=== PATIENT | female | born 1970 | race African-American/Black ===

== ENCOUNTER 2020-12-20 12:55 | Outpatient (CLI) | payer BC, SELFPAY ==
[2020-12-20 13:41] LABS: Hematocrit 37.2 % (37.0-47.0); Hemoglobin 12.7 g/dL (12.0-15.0)
== END 2020-12-20 12:56 | disposition home or self-care (01) ==
LOC: ANHSURGERY 12:59
PROVIDERS: PCP Internal Medicine; Visit Provider Obstetrics & Gynecology Gynecology
DX: D64.9 Anemia, unspecified (principal); D25.9 Leiomyoma of uterus, unspecified; Z01.818 Encounter for other preprocedural examination
CPT/HCPCS: 36415; 85014; 85018; 86850; 86900; 86901

== ENCOUNTER 2020-12-24 10:10 | Inpatient (IN) | payer BC, SELFPAY ==
[2020-12-19 15:28] VITALS: BMI 41.6
[2020-12-24] VITALS (9 sets, daily range): BP systolic 105–146; BP diastolic 58–84; PULSE 79–105; RESP 16–21; TEMP 36.3–37.1; O2SAT 94–100
--- NOTE | 2020-12-24 07:22 | WPDANESEPPF ---
Anes - Initial Pre Proc Eval Procedure: Operation Date: 12/24/20 08:30 Proposed Procedures p Total Abdominal Hysterectomy - Hoda Loya MD Date/Time: 12/24/20 07:22 Surgeon: Hoda Loya MD Pre Op Diagnosis: enlarged uterus, anemia, fibroids Patient Data Age: 50 Gender: F Height: 1.63 m Weight: 110 kg Allergies Allergy/AdvReac Type Severity Reaction Status Date / Time No Known Allergies Allergy Unverified 12/24/20 07:37 Home Medications Medication Instructions Recorded Confirmed Type solifenacin [Vesicare] 5 mg PO DAILY 05/17/19 12/24/20 History valacyclovir [Valtrex] 500 mg PO DAILY 05/17/19 12/24/20 History ascorbic acid (vitamin C) 1 g PO DAILY 12/19/20 12/24/20 History cholecalciferol (vitamin D3) 125 mcg PO DAILY 12/19/20 12/24/20 History [Vitamin D3] ferrous sulfate 200 mg PO DAILY 12/19/20 12/24/20 History Patient hx anesthesia problems: none Family hx anesthesia problems: none PMFSH Past Medical History Medical History (Updated 12/24/20 @ 07:34 by Hoad Loya MD) DVT (deep venous thrombosis) x2 HSV infection Morbid obesity with BMI of 40.0-44.9, adult Surgical History Surgical History (Updated 12/24/20 @ 07:35 by Hoda Loya MD) History of hysteroscopy S/P tubal ligation Status post breast reduction Family History Family History (Updated 12/24/20 @ 07:32 by Hoda Loya MD) Mother Uterine cancer Social History Social History Smoking status: Never smoker Alcohol intake: current Drinks per week: 3 Living arrangements: alone Gender identity (if verbalized by the patient): Female Anes - Eval Final PreProcedure Day of Procedure 12/24/20 07:22 Patient weight: morbidly obese Heart: regular rate and rhythm Lungs: clear to auscultation and normal air movement Airway: Mallampati scale class III Neurological: alert and oriented Last oral intake: >/= 8 hours ASA classification: III Emergent: no Anesthetic plan: proceed Anesthesia type and monitoring: general ETT and standard monitoring Informed Consent: The patient's anesthetic plan and its attendant risks and benefits were discussed with the patient/family/POA. Questions were solicited and answers provided to the satisfaction of the patient/family/POA.
--- NOTE | 2020-12-24 07:26 | WPDHPUPDATE1 ---
History and Physical Update Update Date/Time: 12/24/20 07:26 History and Physical has been reviewed, including an updated exam of the patient. There are NO changes in the patient's condition. Risks, benefits, and alternatives have been discussed and questions answered. Patient agrees to proceed with procedure.
--- NOTE | 2020-12-24 07:26 | PM.IMHP ---
H&P: HPI History of Present Illness Date/Time: 12/24/20 07:26 Chief Complaint: fibroid uterus Narrative: the patient is a 50-year-old 1 para 0 aborta 1 admitted for total abdominal hysterectomy bilateral salpingectomy secondary to enlarged fibroid uterus. The patient has had a known fibroid uterus for many years and patient states that her pelvic pressure has increased to the point she wishes to proceed with hysterectomy . The patient's cycles have been normal and remain regular. The risks of surgery including infection, bleeding, injury to internal organs ( especially bowel, bladder, ureters, and ovaries ), deep vein thrombosis, and anesthesia were reviewed. Given the patient's prior history of DVT she will be given Lovenox prior to the surgery as well as postop in the hospital and be discharged with Eliquis for 6 weeks. In addition she will have pneumatic boots during and postoperatively. Patient voices understanding and agrees to proceed. Review of Systems Review of Systems: All systems reviewed & are unremarkable except as noted in HPI and below (HPI) [facility] Past Medical History Medical History (Updated 12/24/20 @ 07:34 by Hoda Loya MD) DVT (deep venous thrombosis) x2 HSV infection Morbid obesity with BMI of 40.0-44.9, adult Surgical History Surgical History (Updated 12/24/20 @ 07:35 by Hoda Loya MD) History of hysteroscopy S/P tubal ligation Status post breast reduction Family History Family History (Updated 12/24/20 @ 07:32 by Hoda Loya MD) Mother Uterine cancer Social History Social History Smoking status: Never smoker Alcohol intake: current Drinks per week: 3 Living arrangements: alone Gender identity (if verbalized by the patient): Female Meds Home Medications and Allergies Home Medications Medication Instructions Recorded Confirmed Type solifenacin [Vesicare] 5 mg PO DAILY 05/17/19 12/19/20 History valacyclovir [Valtrex] 500 mg PO DAILY 05/17/19 12/19/20 History ascorbic acid (vitamin C) 1 g PO DAILY 12/19/20 12/19/20 History cholecalciferol (vitamin D3) 125 mcg PO DAILY 12/19/20 12/19/20 History [Vitamin D3] ferrous sulfate 200 mg PO DAILY 12/19/20 12/19/20 History Allergies Allergy/AdvReac Type Severity Reaction Status Date / Time No Known Allergies Allergy Unverified 12/19/20 15:16 Exam Const: General: healthy appearing and alert Orientation/consciousness: patient oriented x3 Resp: Effort & Inspection: normal respiratory effort Auscultation: clear to auscultation bilaterally Cardio: Rate: regular rate Rhythm: regular rhythm GI: GI Palp: Yes Soft to palpation, No Tenderness to palpation present (GI) and Yes Palpable mass present (fundus at U) : External Female Exam: normal external appearance Speculum Exam - Vagina: normal appearance of the vagina and normal vaginal discharge Speculum Exam - Cervix: Other cervical findings present (cervix pulled very anterior under bone) Bimanual exam- vagina & uterus: enlarged (At Umbilicus) Bimanual Exam- Adnexa, other: No adnexal tenderness Neuro: General: patient oriented x3 Assessment and Plan Assessment and plan (1) Fibroids: Code(s): D21.9 - Benign neoplasm of connective and other soft tissue, unspecified Status: Acute Assessment and Plan: Plan to proceed with FAY-BS
[2020-12-24] MEDS: ACETAMINOPHEN 500 MG TABLET 1000 MG PO (07:39)
[2020-12-24] MEDS: LACTATED RINGERS 1,000 ML 30 ML IV CONT ×2 (08:00→10:16)
[2020-12-24] MEDS: ENOXAPARIN 40 MG/0.4 ML SYRINGE SUB-Q (08:25)
[2020-12-24] MEDS: ceFAZolin 2 GM/D5W 50 ML 2 GM/50 ML BAG IVPB (08:27)
--- NOTE | 2020-12-24 10:08 | W.PM.PROC2 ---
Procedure Note - Detailed Date of Procedure 12/24/20 Pre-op Diagnosis enlarged uterus, anemia, fibroids Post-op Diagnosis same Procedure Performed Total abdominal hysterectomy Surgeon Hoda Loya MD Anesthesia general Findings tubes are surgically absent; ovaries appeared normal; uterus is enlarged with multiple large fibroids to the umbilicus and very wide Description of Procedure the patient was taken to the operating room and placed under anesthesia in the dorsal supine position. She is prepped and draped in the usual sterile fashion. A vertical skin incision is made in the midline from 2cm above the symphysis pubis to the umbilicus. The periumbilical scar and keloid is excised. The incision was carried down to the fascia which was nicked in the midline and extended superiorly and inferiorly with Damon scissors. [place] was used to grasp the fascia which was then dissected off laterally the peritoneum was identified tented and entered with Metzenbaum scissors. The incision is extended with Bovie cautery under direct visualization and palpation. The bowel was packed away using moist laparotomy sponges. The [place] is placed. The uterus is grasped on the cornu with large peons. The round ligaments were doubly ligated with 0 Vicryl transected and the anterior leaf of the broad ligament incised meeting in the midline and the bladder was dissected off using a sponge stick. The uterine vessels are skeletonized, clamped, transected, and suture ligated with 0 Vicryl. The cardinal and uterosacral ligaments were serially clamped, transected, and suture ligated with 0 Vicryl. The uterosacral ligaments were tagged for future use. The vaginal cuff was entered on the left side during the last pedicle. The Allis clamps are used to grasp the vaginal cuff anteriorly and posteriorly. The specimen was amputated using Joyce scissors. The vaginal cuff was closed using 0 Vicryl in a running locked stitch tying each angle to the ipsilateral uterosacral ligaments. The pelvis is irrigated and the right ovary is noted to have bleeding from the suture line. The pedicle was regrasped with a Z clamp was suture ligated and tied with 0 Vicryl resulting in hemostasis. The left ovary is also noted to have bleeding from the left ovarian vein. This is grasped with a clamped suture ligated with 0 Vicryl and good hemostasis is noted the pelvis is irrigated and all pedicles and the vaginal cuff appeared to be hemostatic. All instruments are removed. All sponges are removed. The fascia was closed using 0 PDS in a running fashion. The subcutaneous tissues are irrigated made hemostatic using Bovie cautery. The skin is closed using geoffrey. Sterile bandage was applied. Sponge, needle, and instrument counts are correct per the OR staff. Estimated Blood Loss 100 Drains Yes (koehler) Packing No Pathology yes ( Uterus) Complications No immediate complications Condition stable Disposition PACU
--- NOTE | 2020-12-24 10:17 | PM.DS ---
DS: Admitting Diagnosis Admitting Diagnosis Admitting Diagnosis: symptomatic fibroid uterus DS: Discharge Diagnosis Discharge Diagnosis (1) Fibroids: Code(s): D21.9 - Benign neoplasm of connective and other soft tissue, unspecified Status: Acute (2) S/P FAY (total abdominal hysterectomy): Code(s): Z90.710 - Acquired absence of both cervix and uterus Status: Acute DS: Summary Hospital Course Hospital Course: At the time of discharge, the patient is voiding, ambulating, and tolerating a regular diet. Status at Discharge Functional status at discharge: independent ambulation Overall status at discharge: patient is progressing back to baseline Time Spent with Patient Time attestation: Total time spent providing and/or coordinating discharge services: Time spent: Less than 30 minutes DS: Data Data Completed and Pending Pending studies at discharge: Pending at discharge 12/24/20 09:43 Surgical [PTH] Routine Discharge Plan Discharge Attending physician on discharge: Hoda Loya Discharging Clinician: Isael Leon Anticipated Discharge Date/Time: 12/26/20 07:44 Patient Disposition: Home, Self-Care Activity: may shower, may drive after 2 weeks and pelvic rest Diet: regular Wound Care Instructions: incision open to air Patient Instructions: Hysterectomy (DC), Pain Management After Surgery (DC) Stand Alone Forms: General Discharge Instructions Follow-up/Referrals: Hoda Loya MD [Physician] - Keep Reg. Scheduled Appt. (follow up in 10 days bring suture remover kit, benzoine, and steristrips to visit) Discharge Medications: New hydrocodone-acetaminophen 5-325 mg tablet 1 tablet PO Q4H PRN (Reason: pain) Qty: 30 RF: 0 Eliquis 2.5 mg tablet 2.5 mg PO BID Qty: 60 RF: 1 Continued valacyclovir [Valtrex] 500 mg Tablet 500 mg PO DAILY RF: 0 solifenacin [Vesicare] 5 mg Tablet 5 mg PO DAILY RF: 0 ascorbic acid (vitamin C) 1,000 mg Tablet 1 g PO DAILY RF: 0 ferrous sulfate 200 mg (40 mg iron) Tablet 200 mg PO DAILY RF: 0 cholecalciferol (vitamin D3) [Vitamin D3] 125 mcg (5,000 unit) Tablet 125 mcg PO DAILY RF: 0 Date of admission: 12/24/20 11:27 Primary Care Provider: Carrie,Jennifer Lundberg Admitting Provider: Hoda Loya Attending physician on admission: Hoda Loya Condition: Stable Health Concerns: Send home with staple remover, benzoine, and steri-strips and to bring to office
--- NOTE | 2020-12-24 10:45 | SUR.OPER ---
pt presented to or w/piercing to perineal area/removed upon arrival. pt denied preop any jewelry. dr fierro aware
--- NOTE | 2020-12-24 10:50 | SUR.PHASEI ---
Simple mask removed at 1050.
[2020-12-24] MEDS: fentaNYL CITRATE INJ (*CRX) 100 MCG/2 ML VIAL 25 MCG IV PUSH (11:15)
[2020-12-24] MEDS: DEXTROSE 5%/LACTATED RINGERS 1,000 ML 125 ML IV CONT ×2 (12:13→20:11)
[2020-12-24] MEDS: HYDROcodone/acetaminophen (*CRX) 10-325 MG TABLET 1 TAB PO ×4 (12:17→23:21)
--- NOTE | 2020-12-24 12:20 | PC.NURSE ---
This patient, Eileen Romero, was received from PACU on 12/24/20 at 1135 per bed. Patient oriented to unit policies and routines
[2020-12-25] VITALS: BP 138/74; PULSE 102; RESP 16; TEMP 37.2; O2SAT 99
[2020-12-25] MEDS: HYDROcodone/acetaminophen (*CRX) 10-325 MG TABLET 1 TAB PO ×2 (03:02→16:19)
[2020-12-25 03:30] VITALS: BP 137/74; PULSE 100; RESP 16; TEMP 37.1; O2SAT 98
[2020-12-25 06:04] LABS: Basophils Percent Auto 0.2 % (0.2-1.2); Eosinophils Percent Auto 0.1 % (0-4.4); Hematocrit 30.8 % (37.0-47.0); Hemoglobin 11.1 g/dL (12.0-15.0); Immature Granulocyte Absolute 0.05 K/mm3 (0.00-0.031); Immature Granulocyte Percent A 0.4 % (0-0.5); Lymphocytes Absolute Auto 1.73 K/mm3 (0.9-3.2); Lymphocytes Percent Auto 15.4 % (18.3-44.2); Mean Platelet Volume 9.2 fl (7.4-10.4); Monocytes Absolute Auto 1.4 K/mm3 (0.1-0.6); Monocytes Percent Auto 12.1 % (2.6-8.5); Neutrophils Absolute Auto 8.1 K/mm3 (1.3-6.7); Neutrophils Percent Auto 71.8 % (45.5-73.1); Platelet Count Result 321 k/mm3 (150-375); Red Blood Count 3.58 M/mm3 (4.2-5.4); Red Cell Distribution Width 12.2 % (11.5-14.5); White Blood Count 11.3 K/mm3 (4.5-10.0)
--- NOTE | 2020-12-25 07:43 | PM.GYNPNOP ---
SEPTIC TECHNICIAN - A/P Assessment and plan (1) S/P FAY (total abdominal hysterectomy): Code(s): Z90.710 - Acquired absence of both cervix and uterus Status: Acute Assessment and Plan: Doing well. Continue post op care Postoperative Procedures: Procedures Operation Date: 12/24/20 08:30 Actual Procedure Side Surgeon p Total Abdominal Hysterectomy, bilateral salpingectomy Bilateral Hoda Loya MD Time Spent With Patient Time: Total time spent is greater than 50% in coordination of care (as documented) at patient's floor/unit and/or counseling patient: Time with patient: less than 15 minutes SEPTIC TECHNICIAN- PN:Subj Post-Op Subjective Date/time seen: 12/25/20 07:43 Subjective: patient reports feeling better and pain is well controlled Exam Narrative: Exam Narrative: inc c/d/i abdomen soft, appropriately tender SEPTIC TECHNICIAN - PN: Obj Data Vital Signs Vital Signs: Vital Signs - 24 hr 12/24/20 10:16 12/24/20 10:30 12/24/20 10:45 Temperature 97.3 F L Pulse Rate 86 79 81 Respiratory Rate 18 21 H 19 Blood Pressure 116/58 L 109/62 105/71 Pulse Oximetry 99 100 100 12/24/20 11:00 12/24/20 11:15 12/24/20 11:50 Temperature 98.1 F Pulse Rate 82 81 88 Respiratory Rate 19 20 18 Blood Pressure 113/66 110/59 L 116/62 Pulse Oximetry 97 99 94 12/24/20 15:50 12/24/20 19:45 12/25/20 00:00 Temperature 98.6 F 97.7 F 98.9 F Pulse Rate 105 H 103 H 102 H Respiratory Rate 20 16 16 Blood Pressure 144/84 H 146/83 H 138/74 Pulse Oximetry 100 99 12/25/20 03:30 Temperature 98.8 F Pulse Rate 100 Respiratory Rate 16 Blood Pressure 137/74 Pulse Oximetry 98 Intake/Output Intake/Output: Intake & Output 12/22/20 12/23/20 12/24/20 12/25/20 23:59 23:59 23:59 23:59 Intake Total 2167 Output Total 1170 1650 Balance 997 -1650 Meds/Results Medications: Active Medications Generic Name Dose Route Start Last Admin Trade Name Freq PRN Reason Stop Dose Admin Hydrocodone Bitart/Acetaminophen 1 tab 12/24/20 11:27 12/25/20 03:02 Hydrocodone/Acetaminophen (*Crx) 10-325 Mg Tablet PO 1 tab Q3H PRN Administration Pain Rated 6 or Greater Enoxaparin Sodium 40 mg 12/25/20 09:00 Enoxaparin 40 Mg/0.4 Ml Syringe SUB-Q DAILY [facility] Ondansetron HCl 4 mg 12/24/20 11:27 Ondansetron Inj 4 Mg/2 Ml Vial IV PUSH Q6H PRN Nausea Simethicone 80 mg 12/24/20 11:27 Simethicone 80 Mg Tab.Chew PO Q2H PRN Gas Solifenacin 5 mg 12/25/20 09:00 Solifenacin 5 Mg Tablet PO DAILY [facility] Valacyclovir HCl 500 mg 12/25/20 09:00 Valacyclovir Hcl 500 Mg Tablet PO DAILY [facility] Labs CBC & Chem 7: 12/25/20 05:53 Labs: Laboratory Results - last 24 hr 12/25/20 05:53 WBC 11.3 H RBC 3.58 L Hgb 11.1 L Hct 30.8 L MCV 86.0 MCH 31.0 MCHC 36.0 RDW 12.2 Plt Count 321 MPV 9.2 Immature Gran % (Auto) 0.4 Neut % (Auto) 71.8 Lymph % (Auto) 15.4 L [place] % (Auto) 12.1 H Eos % (Auto) 0.1 Baso % (Auto) 0.2 Lymph # (Auto) 1.73 [place] # (Auto) 1.4 H Eos # (Auto) 0.0 Baso # (Auto) 0.0 Abs Immat Gran (auto) 0.05 H Absolute Neuts (auto) 8.1 H Absolute Nucleated RBC 0.0 Nucleated RBC % 0.0
[2020-12-25 08:15] VITALS: PULSE 95; RESP 16; O2SAT 99
--- NOTE | 2020-12-25 08:15 | PC.NURSE ---
PT introductions made and plan of care discussed per post op hardware sales assistant surgery, pain management, daily care activities. PT received education and instructions via one to one discussion and demonstration. PT recipient of such instructions and no barriers to learning identified. PT verbalized understanding of such care.
--- NOTE | 2020-12-25 08:44 | P.PNAN_ITS ---
Anes - Prog Note Post-Op Date/Time: 12/25/20 08:44 Cardiovascular status: normal Respiratory status: normal Airway patency: baseline Mental status: baseline Post-Op hydration status: normal Vital Signs: Last Vital Signs Temp 37.1 C 12/25/20 03:30 Pulse 100 12/25/20 03:30 Resp 16 12/25/20 03:30 BP 137/74 12/25/20 03:30 Pulse Ox 98 12/25/20 03:30 Pain Score (VAS): 06/17 I/O: Intake & Output 12/24/20 12/25/20 12/25/20 23:59 07:59 15:59 Intake Total 1817 Output Total 200 1650 Balance 1617 -1650 Laboratory Tests 12/25/20 05:53 12/25/20 05:53 WBC 11.3 H RBC 3.58 L Hgb 11.1 L Hct 30.8 L MCV 86.0 MCH 31.0 MCHC 36.0 RDW 12.2 Plt Count 321 MPV 9.2 Immature Gran % (Auto) 0.4 Neut % (Auto) 71.8 Lymph % (Auto) 15.4 L [place] % (Auto) 12.1 H Eos % (Auto) 0.1 Baso % (Auto) 0.2 Lymph # (Auto) 1.73 [place] # (Auto) 1.4 H Eos # (Auto) 0.0 Baso # (Auto) 0.0 Abs Immat Gran (auto) 0.05 H Absolute Neuts (auto) 8.1 H Absolute Nucleated RBC 0.0 Nucleated RBC % 0.0 Post-procedural complaints: none Patient Feedback: Patient satisfied with anesthetic care.
[2020-12-25 09:00] VITALS: BP 131/75; PULSE 95; RESP 16; TEMP 37.1; O2SAT 99
[2020-12-25] MEDS: SIMETHICONE 80 MG TAB.CHEW PO ×2 (09:11→16:19)
[2020-12-25] MEDS: valACYclovir HCL 500 MG TABLET PO (09:11)
[2020-12-25] MEDS: SOLIFENACIN 5 MG TABLET PO (09:11)
[2020-12-25] MEDS: ENOXAPARIN 40 MG/0.4 ML SYRINGE SUB-Q (09:12)
[2020-12-25 20:00] VITALS: BP 129/86; PULSE 97; RESP 16; TEMP 37.3; O2SAT 99
[2020-12-25] MEDS: ACETAMINOPHEN 500 MG TABLET 1000 MG PO (23:16)
--- NOTE | 2020-12-26 07:10 | P.PNOB_ITS ---
INFORMATION ASSISTANT - A/P Assessment and plan (1) S/P FAY (total abdominal hysterectomy): Code(s): Z90.710 - Acquired absence of both cervix and uterus Status: Acute Assessment and Plan: Will d/c home f/u in 1 week for staple removal Postoperative Procedures: Procedures Operation Date: 12/24/20 08:30 Actual Procedure Side Surgeon p Total Abdominal Hysterectomy, bilateral salpingectomy Bilateral Hoda Loya MD Time Spent With Patient Time: Total time spent is greater than 50% in coordination of care (as do cumented) at patient's floor/unit and/or counseling patient: Time with patient: less than 15 minutes INFORMATION ASSISTANT- PN:Subj Post-Op Subjective Date/time seen: 12/26/20 07:10 Patient reports doing okay only took tylenol last night concerned for constipation. Exam Narrative: Exam Narrative: incision c/d/i with geoffrey INFORMATION ASSISTANT - PN: Obj Data Vital Signs Vital Signs: Vital Signs - 24 hr 12/25/20 08:15 12/25/20 09:00 12/25/20 20:00 Temperature 37.1 C 37.3 C Pulse Rate 95 95 97 Respiratory Rate 16 16 16 Blood Pressure 131/75 129/86 Pulse Oximetry 99 99 99 Intake/Output Intake/Output: Intake & Output 12/23/20 12/24/20 12/25/20 12/26/20 23:59 23:59 23:59 23:59 Intake Total 2167 600 Output Total 1170 1850 Balance 997 -1250 Meds/Results Medications: Active Medications Generic Name Dose Route Start Last Admin Trade Name Freq PRN Reason Stop Dose Admin Acetaminophen 1,000 mg 12/25/20 16:12 12/25/20 23:16 Acetaminophen 500 Mg Tablet PO 1,000 mg Q6H PRN Administration Mild Pain (1-3) or Fever Hydrocodone Bitart/Acetaminophen 1 tab 12/24/20 11:27 12/25/20 16:19 Hydrocodone/Acetaminophen (*Crx) 10-325 Mg Tablet PO 1 tab Q3H PRN Administration Pain Rated 6 or Greater Enoxaparin Sodium 40 mg 12/25/20 09:00 12/25/20 09:12 Enoxaparin 40 Mg/0.4 Ml Syringe SUB-Q 40 mg DAILY [facility] Administration Ondansetron HCl 4 mg 12/24/20 11:27 Ondansetron Inj 4 Mg/2 Ml Vial IV PUSH Q6H PRN Nausea Simethicone 80 mg 12/24/20 11:27 12/25/20 16:19 Simethicone 80 Mg Tab.Chew PO 80 mg Q2H PRN Administration Gas Solifenacin 5 mg 12/25/20 09:00 12/25/20 09:11 Solifenacin 5 Mg Tablet PO 5 mg DAILY KARL Administration Valacyclovir HCl 500 mg 12/25/20 09:00 12/25/20 09:11 Valacyclovir Hcl 500 Mg Tablet PO 500 mg DAILY KARL Administration Labs CBC & Chem 7: 12/25/20 05:53
--- NOTE | 2020-12-26 09:00 | PC.NURSE ---
PT introductions made and plan of care discussed per post op gymnastic coach surgery, pain management, daily care activities and pending discharge to home. PT verbalized understanding of such care. PT received discharge instructions and education this shift via one to one discussion and demonstration and discharge papers. PT only recipient of such instructions and no barriers to learning identified.
[2020-12-26 09:10] VITALS: BP 140/78; PULSE 94; RESP 16; TEMP 37.3; O2SAT 100
[2020-12-26 09:28] VITALS: PULSE 94; RESP 16; O2SAT 100
[2020-12-26] MEDS: SOLIFENACIN 5 MG TABLET PO (09:28)
[2020-12-26] MEDS: valACYclovir HCL 500 MG TABLET PO (09:28)
[2020-12-26] MEDS: ACETAMINOPHEN 500 MG TABLET 1000 MG PO (09:28)
[2020-12-26] MEDS: SIMETHICONE 80 MG TAB.CHEW PO (09:28)
[2020-12-26] MEDS: ENOXAPARIN 40 MG/0.4 ML SYRINGE SUB-Q (09:29)
--- NOTE | 2020-12-26 11:43 | PC.NURSE ---
PT discharged to home via wheelchair to waiting car. Follow up appts confirmed and pt received supplies to take to office visit. PT verbalized understanding of such follow up appts.
== END 2020-12-26 11:43 | disposition home or self-care (01) | DRG 982 ==
LOC: ANHSURGERY 10:19 → ANHOB2 11:35
PROVIDERS: Admitting Provider Obstetrics & Gynecology Gynecology; PCP Internal Medicine; Visit Provider Obstetrics & Gynecology
PROC: 0UT94ZZ Resection of Uterus, Percutaneous Endoscopic Approach (ICD-10-PCS; principal; 2020-12-24 08:30)
DX: D21.9 Benign neoplasm of connective and other soft tissue, unspecified (principal); Z68.41 Body mass index [BMI] 40.0-44.9, adult; D64.9 Anemia, unspecified; N85.2 Hypertrophy of uterus; E66.01 Morbid (severe) obesity due to excess calories
CPT/HCPCS: 36415; 85025; 88307; A9270; J0330; J0690; J1650; J2250; J2270; J2405; J2704; J3010; J7120; J7121